=== PATIENT | male | born 1990 | race Caucasian/White ===

== ENCOUNTER 2017-04-16 16:31 | Emergency (ER) | payer SELFPAY ==
[~2017-04-16] VITALS: Ht 154.9 cm; Wt 82.1 kg
[2017-04-16 16:43] VITALS: BP 132/72
[2017-04-16] MEDS ORDERED: IBUPROFEN 800 MG TABLET. PO ONE (17:30)
--- NOTE | 2017-04-16 17:56 | PHYS DOC ---
Past Medical History Past Medical History: No Pertinent History Past Surgical History: Other Additional Past Surgical Histo: metal plates in head Alcohol Use: None Drug Use: None Adult General Chief Complaint Chief Complaint: FOOT INJURY PAIN HPI HPI Patient is a 27 year old female presents to the emergency department stating that he was at work today when a door got closed on his left foot. He states that he is having increased pain and difficulty ambulating. He also states that he had some glass wear dropped and fell onto that foot as well. Patient states he's been taken ibuprofen for the pain and discomfort he also states that he's been doing Yony wrap's and elevation. Patient states that this is not helping with any of the pain or discomfort. He states that when the door was closed on his foot today he thought he should seek treatment. Patient states that this did happen while he was at work today. Review of Systems Review of Systems Constitutional: Denies fever or chills [] Eyes: Denies change in visual acuity, redness, or eye pain [] HENT: Denies nasal congestion or sore throat [] Respiratory: Denies cough or shortness of breath [] Cardiovascular: No additional information not addressed in HPI [] GI: Denies abdominal pain, nausea, vomiting, bloody stools or diarrhea [] : Denies dysuria or hematuria [] Musculoskeletal: Denies back pain. Left foot pain and discomfort Integument: Denies rash or skin lesions [] Neurologic: Denies headache, focal weakness or sensory changes [] Endocrine: Denies polyuria or polydipsia [] Current Medications Current Medications Current Medications Medications (Trade) Dose Ordered Sig/[facility] Start Time Stop Time Status Last Admin Dose Admin Ibuprofen (Motrin) 800 mg 1X ONCE 04/16/17 17:30 04/16/17 17:31 DC 04/16/17 17:23 800 MG Allergies Allergies Allergies Coded Allergies Type Severity Reaction Last Updated Verified No Known Drug Allergies 04/16/17 No Physical Exam Physical Exam Constitutional: Well developed, well nourished, no acute distress, non-toxic appearance. [] HENT: Normocephalic, atraumatic, bilateral external ears normal, oropharynx moist, no oral exudates, nose normal. [] Eyes: PERRLA, EOMI, conjunctiva normal, no discharge. [] Neck: Normal range of motion, no tenderness, supple, no stridor. [] Cardiovascular:Heart rate regular rhythm, no murmur [] Lungs & Thorax: Bilateral breath sounds clear to auscultation [] Skin: Warm, dry, no erythema, no rash. [] Back: No tenderness Extremities: No tenderness, no cyanosis, no clubbing, ROM intact, no edema. Left foot with redness noted on the metatarsal areas first through third. Patient's able to move the toes although states that he has decreased sensation to the toes. Cap refills brisk less than 2 seconds. Peripheral pulses 2+. Neurologic: Alert and oriented X 3, normal motor function, normal sensory function, no focal deficits noted. [] Psychologic: Affect normal, judgement normal, mood normal. [] Current Patient Data Vital Signs Vital Signs Date Time Temp Pulse Resp B/P (MAP) Pulse Ox O2 Delivery O2 Flow Rate FiO2 04/16/17 16:43 98.3 83 17 98 Room Air 98.3 EKG EKG [] Radiology/Procedures Radiology/Procedures [] Course & Med Decision Making Course & Med Decision Making Pertinent Labs and Imaging studies reviewed. (See chart for details) X-rays were negative for any bony abnormalities per Dr. Herrera. Patient will be placed in Yony wrap and a postop shoe with recommendations for ice packs on 20 minutes off 20 minutes several times a day elevation as much as possible. Patient will be discharged home with the name of an orthopedic in which she can follow-up with if he continues to have pain and discomfort. Patient was provided with signs and symptoms to return back to the emergency department. Patient agrees with discharge instructions, treatment regimens and follow-up recommendations. [] Dragon Disclaimer Dragon Disclaimer This electronic medical record was generated, in whole or in part, using a voice recognition dictation system. Departure Departure Impression: Primary Impression: Sprain of left foot Disposition: 01 HOME, SELF-CARE Condition: STABLE Referrals: NO PCP (PCP) Patient Instructions: Foot Sprain-Brief Additional Instructions: Activity as tolerated. Ibuprofen for pain and discomfort 800 mg every 8 hours with food stop taking few develop an upset stomach. Ice packs on 20 minutes off 20 minutes several times a day. Yony wrap on for the next 5-7 days. Elevation as much as possible. Wear the postop shoe for the next 5-7 days as well. Follow-up with orthopedic in the next week if he still continued have pain and discomfort. Return to the emergency department for signs and symptoms of become worse. KEVYN ATKINSON APRN Apr 16, 2017 17:56
--- NOTE | 2017-04-17 07:56 | RAD ---
Indication injury, pain. AP oblique and lateral views of the left foot were obtained. No bony abnormality is seen
== END 2017-04-16 18:10 | disposition home or self-care (01) ==
LOC: ER 16:31
DX: S93.602A Unspecified sprain of left foot, initial encounter (principal); W20.8XXA Other cause of strike by thrown, projected or falling object, initial encounter; Y93.89 Activity, other specified; Y99.8 Other external cause status; Y92.89 Other specified places as the place of occurrence of the external cause
CPT/HCPCS: 73630; 99284-25